=== PATIENT | male | born 1995 | race Two or more races ===

== ENCOUNTER 2022-06-15 15:53 | Emergency (ER) | payer OTHER ==
[~2022-06-15] VITALS: Ht 160 cm; Wt 56.8 kg
[2022-06-15 17:17] VITALS: BP 100/85
[2022-06-15] MEDS ORDERED: methylPREDNISolone SOD SUCC 125 MG/2 ML VL IM ONE (17:30)
[2022-06-15] MEDS ORDERED: cefTRIAXone SOD 1,000 MG VL IM ONE (17:30)
[2022-06-15] MEDS ORDERED: AZIT500T66 PO (17:53)
[2022-06-15] MEDS ORDERED: PROM1SOL4 PO (17:53)
[2022-06-15] MEDS ORDERED: METH4PAK PO (17:53)
== END 2022-06-15 18:05 | disposition home or self-care (01) ==
LOC: ER 15:53
DX: J20.9 Acute bronchitis, unspecified (principal); J03.90 Acute tonsillitis, unspecified
CPT/HCPCS: 71046; 96372; 99284; J0696; J2930

== ENCOUNTER 2022-08-14 08:50 | Emergency (ER) | payer OTHER ==
[~2022-08-14] VITALS: Ht 160 cm; Wt 70.2 kg
[~2022-08-14 08:50] MED LIST: AZIT500T66 PO; METH4PAK PO; PROM1SOL4 PO
[2022-08-14 09:04] VITALS: BP 125/61
[2022-08-14] MEDS ORDERED: cefTRIAXone SOD 1,000 MG VL IM ONE (10:00)
[2022-08-14] MEDS ORDERED: ACETAMINOPHEN 650 mg PER 20.3 mL UD PO ONE (10:00)
[2022-08-14] MEDS ORDERED: AZIT500T66 PO (10:14)
[2022-08-14] MEDS ORDERED: IBUP600T27 PO (10:14)
[2022-08-14] MEDS ORDERED: ACETAMINOPHEN 500 MG TAB PO ONE (10:15)
== END 2022-08-14 10:32 | disposition home or self-care (01) ==
LOC: ER 08:50
DX: J03.90 Acute tonsillitis, unspecified (principal)
CPT/HCPCS: 96372; 99283; J0696

== ENCOUNTER 2022-08-16 15:56 | Emergency (ER) | payer OTHER ==
[~2022-08-16] VITALS: Ht 160 cm; Wt 68.8 kg
[~2022-08-16 15:56] MED LIST changes: +IBUP600T27 PO
[2022-08-16 16:53] VITALS: BP 105/63
[2022-08-16] MEDS ORDERED: cefTRIAXone 1GM/50ML D5W 50 ML IV ONE (17:15)
[2022-08-16] MEDS ORDERED: DexAMETHasone SOD PHOS 10MG/1ML VIAL INJ IV ONE (17:15)
[2022-08-16] MEDS ORDERED: CEPH-510 PO (18:21)
[2022-08-16] MEDS ORDERED: IBUP600T27 PO (18:22)
== END 2022-08-16 18:47 | disposition home or self-care (01) ==
LOC: ER 15:56
DX: J03.90 Acute tonsillitis, unspecified (principal); Z88.6 Allergy status to analgesic agent
CPT/HCPCS: 71046; 87070; 87880; 96365; 96375; 99284; J0696; J1100

== ENCOUNTER 2023-09-07 15:12 | Emergency (ER) | payer MEDICAID, OTHER ==
[~2023-09-07] VITALS: Ht 160 cm; Wt 65.4 kg
[~2023-09-07 15:12] MED LIST changes: +CEPH-510 PO; +IBUP-1454 PO; -IBUP600T27 PO
[2023-09-07 16:36] VITALS: BP 121/60; PULSE 60; RESP 14; TEMP 98.4; O2SAT 99
[2023-09-07] MEDS ORDERED: DEXT60TA4 PO (17:18)
[2023-09-07] MEDS ORDERED: AUG875T PO (17:18)
[2023-09-07] MEDS ORDERED: LIDO2SOL26 MT (17:18)
== END 2023-09-07 17:19 | disposition home or self-care (01) ==
LOC: ER 15:12
DX: J02.9 Acute pharyngitis, unspecified (principal); Z79.899 Other long term (current) drug therapy